=== PATIENT | male | born 1980 | race Two or more races ===

== ENCOUNTER 2022-06-17 09:17 | Outpatient (CLI) | payer OTHER | END 2022-06-17 12:51 | disposition home or self-care (01) | LOC: LAB 09:17 | PROVIDERS: ATTEND Family Medicine | DX: E11.9 Type 2 diabetes mellitus without complications (principal); Z12.11 Encounter for screening for malignant neoplasm of colon; N40.0 Benign prostatic hyperplasia without lower urinary tract symptoms; E21.3 Hyperparathyroidism, unspecified ==

== ENCOUNTER 2022-12-08 07:47 | Day surgery (SDC) | payer OTHER ==
[~2022-12-08] VITALS: Ht 167.6 cm; Wt 68.0 kg
[2022-12-08] MEDS ORDERED: POLY119PG PO (11:58)
[2022-12-08] MEDS ORDERED: NEURONTIN300 MG PO (11:58)
[2022-12-08] MEDS ORDERED: TRAM1TAB98 PO (11:58)
== END 2022-12-08 15:30 | disposition home or self-care (01) ==
LOC: CIR.AMB 07:47
PROVIDERS: ATTEND Surgery
DX: K42.9 Umbilical hernia without obstruction or gangrene (principal); Q64.4 Malformation of urachus; Z20.822 Contact with and (suspected) exposure to COVID-19

== ENCOUNTER 2023-01-11 13:21 | Outpatient (CLI) | payer OTHER ==
[~2023-01-11 13:21] MED LIST: NEURONTIN300 MG PO; POLY119PG PO; TRAM1TAB98 PO
== END 2023-01-11 13:36 | disposition home or self-care (01) ==
LOC: TOM 13:21
PROVIDERS: ATTEND Internal Medicine Cardiovascular Disease
DX: R91.1 Solitary pulmonary nodule (principal)